=== PATIENT | male | born 1990 | race Caucasian/White ===

== ENCOUNTER 2017-11-02 21:17 | Observation (INO) | payer OTHER ==
[2017-11-02 22:15] LABS: #Basophils 0.1 thou/uL (0.0-0.2); #Eosinphils 0.3 thou/uL (0.0-0.7); #Lymphocytes 3.1 thou/uL (1.20-3.40); #Monocytes 0.7 thou/uL (0.11-0.59); #Neutrophils 3.7 thou/uL (1.40-6.50); %Basophils 1.1 % (0.0-1.0); %Eosinophils 3.8 % (0.0-10.0); %Lymphocytes 39.3 % (21.0-51.0); %Monocytes 8.6 % (0.0-10.0); %Neutrophils 47.1 % (42.0-75.0); Hemoglobin 14.7 g/dL (14.0-18.0); Mean Corpuscular HGB CONC 33.5 g/dL (32.0-36.0); Mean Corpuscular Hemoglobin 28.2 pg (27.0-31.0); Mean Corpuscular Volume 84.1 fl (80.0-94.0); Mean Platelet Volume 8.4 fL (7.4-10.4); Platelet Count 258 thou/uL (130-400); RBC Distribution Width 11.5 % (11.5-14.5); Red Blood Cell (RBC) Count 5.21 mill/uL (4.70-6.10); White Blood Cell (WBC) Count 7.9 thou/uL (4.8-10.8)
[2017-11-02 22:26] LABS: Acetaminophen Less than 6.0 mcg/mL (10.0-30.0); Alcohol Less than 10 mg/dL (Less than 10); Salicylate Less than 8.0 mg/dL (15.0-30.0)
[2017-11-02 22:29] LABS: ALT (SGPT) 31 U/L (8-55); AST (SGOT) 23 U/L (5-34); Albumin 4.5 g/dL (3.5-5.0); Alkaline Phosphatase 57 U/L (40-150); Anion Gap 16 mmol/L (10-20); BUN (Urea Nitrogen) 15 mg/dL (8.9-20.6); Bilirubin, Total 0.6 mg/dL (0.2-1.2); CK (CPK) 82 U/L (30-200); CKMB 0.9 ng/mL (0-6.6); Calc. Creatinine Clearance 0 mL/min (70-130); Carbon Dioxide 23 mmol/L (22-29); Chloride 102 mmol/L (98-107); Estimated GFR-MDRD Greater than 90; Glucose 107 mg/dL (70-105); Potassium 4.1 mmol/L (3.5-5.1); Protein, Total 8.5 g/dL (6.0-8.3); Sodium 137 mmol/L (136-145); Troponin I Less than 0.010 ng/mL (< 0.028)
--- NOTE | 2017-11-02 22:42 | CT ---
NONCONTRAST CT HEAD 11/02/17 HISTORY: Two separate syncopal episodes today. Patient may have hit head on counter. COMPARISON: None available. FINDINGS: There is no evidence of a hemorrhage, acute infarction, mass effect, or midline shift. The ventricula r system is normal in size, shape, and position. Calvarial structures are intact without evidence of a fracture. There is small area of scalp soft tissue swelling in the posterior right parietal region. There is mucosal thickening in the left sphenoid sinus with minimal mucosal thickening in a few right sided ethmoidal air cells. Mastoid air cells are clear. IMPRESSION: 1. No acute intracranial abnormalities demonstrated. 2. Small right parietal scalp hematoma. 3. Minimal sinus disease involving the left sphenoid sinus. POS: H
--- NOTE | 2017-11-02 23:10 | RAD ---
PA AND LATERAL CHEST X-RAY 11/02/17 HISTORY: Syncope. COMPARISON: None available. FINDINGS: The cardiac silhouette and pulmonary vasculature are within normal limits. There is focal eventration of the anterior right hemidiaphragm. Lungs are clear. Osseous structures are intact. IMPRESSION: No acute cardiopulmonary process. POS: H
[2017-11-03 00:46] VITALS: BMI 41.8
[2017-11-03] MEDS ORDERED: Ondansetron ODT 4 MG TAB PO PRN (01:08)
[2017-11-03] MEDS ORDERED: Acetaminophen 325 MG TAB PO PRN (01:08)
[2017-11-03] MEDS ORDERED: Nicotine 14 MG PATCH TD PRN (01:08)
--- NOTE | 2017-11-03 01:33 | PDOC.FPRHP ---
- History of Present Illness Chief Complaint: syncope History of Present Illness: Patient came into the Ed for evaluation after 2 episodes of syncope today. The first was while sitting in his bed playing video games, says he passed out and it must have been for 30 min based on timer on his video game. 2nd episode was when he was washing dishes, he fell and hit his head on the counter, does not think he passed out at this time because he remembers hitting his head. He had no aura. He states he feels dizzy (light-headed) often. He states he has "migraine" headache all the time described as sharp pain that can occur anywhere on his head and is relieved by vaping. Denies fevers, chills, sweats. Has had nausea, no vomiting. Was started on HCTZ 12.5mg 3 days ago along with increase in his lisinopril dose to 10mg. Was also started on clonazepam by Dr. Schwartz for his headaches this week. ED Course: 1L NS EKG normal negative head CT - Allergies/Adverse Reactions Allergies Allergy/AdvReac Type Severity Reaction Status Date / Time No Known Allergies Allergy Verified 11/03/17 00:40 - Home Medications Medication Instructions Recorded Confirmed Type Hydrochlorothiazide 12.5 mg PO DAILY 11/03/17 11/03/17 History Lisinopril [Lisinopril] 10 mg PO DAILY 11/03/17 11/03/17 History clonazePAM [clonazePAM] 0.5 mg PO DAILY 11/03/17 11/03/17 History - History PMHx: Headaches, HTN, anxiety PSHx: none FHx: adopted Social: vaping, occassional alcohol, no drugs - Review of Systems General: reports: fatigue. denies: fever/chills, weight/appetite/sleep changes , night sweats Eyes: denies: vision changes ENT: denies: nasal congestion, rhinorrhea Respiratory: denies: cough, congestion, shortness of breath Cardiovascular: denies: chest pain, palpitation, edema Gastrointestinal: denies: nausea, vomiting, diarrhea, constipation, abdominal pain, GI bleeding Genitourinary: denies: dysuria, polyuria Skin: reports: rashes (left forearm). denies: itching Musculoskeletal: denies: pain, arthritis/arthralgias Neurological: reports: syncope. denies: numbness, seizure, weakness Psychological: reports: anxiety. denies: depression - Vital signs BP: 142/102 HR: 88 RR: 16 Tmax: 98.8 Pox: 97% on RA Wt: 139.7 - Physical Exam Constitutional: NAD, awake, alert and oriented HEENT: normocephalic and atraumatic, PERRLA, EOMI, TM's clear and intact, MMM Neck: supple, FROM Chest: no-tender to palpation Heart: RRR, normal S1/S2, no murmurs/rubs/gallops, no edema Lungs: CTAB, no respiratory distress, good air movement Abdomen: soft, non-tender, bowel sounds present, no masses/distention Musculoskeletal: normal structure, ROM grossly normal Neurological: no focal deficit, CN II-XII intact, normal sensation Skin: no rash/lesions, capillary refill <2 seconds Heme/Lymphatic: no unusual bruising or bleeding FMR H&P: Results - Labs Result Diagrams: 11/02/17 22:03 11/02/17 22:03 Lab results: WBC 7.9 thou/uL (4.8-10.8) 11/02/17 22:03 Hgb 14.7 g/dL (14.0-18.0) 11/02/17 22:03 Hct 43.8 % (42.0-52.0) 11/02/17 22:03 MCV 84.1 fl (80.0-94.0) 11/02/17 22:03 Plt Count 258 thou/uL (130-400) 11/02/17 22:03 Neutrophils % 47.1 % (42.0-75.0) 11/02/17 22:03 Sodium 137 mmol/L (136-145) 11/02/17 22:03 Potassium 4.1 mmol/L (3.5-5.1) 11/02/17 22:03 Chloride 102 mmol/L (98-107) 11/02/17 22:03 Carbon Dioxide 23 mmol/L (22-29) 11/02/17 22:03 BUN 15 mg/dL (8.9-20.6) 11/02/17 22:03 Creatinine 0.76 mg/dL (0.7-1.3) 11/02/17 22:03 Glucose 107 mg/dL (70-105) H 11/02/17 22:03 Lactic Acid 1.1 mmol/L (0.5-2.2) 11/02/17 22:03 Calcium 10.0 mg/dL (7.8-10.44) 11/02/17 22:03 Total Bilirubin 0.6 mg/dL (0.2-1.2) 11/02/17 22:03 AST 23 U/L (5-34) 11/02/17 22:03 ALT 31 U/L (8-55) 11/02/17 22:03 Alkaline Phosphatase 57 U/L (40-150) 11/02/17 22:03 Creatine Kinase 82 U/L (30-200) 11/02/17 22:03 CK-MB (CK-2) 0.9 ng/mL (0-6.6) 11/02/17 22:03 Serum Total Protein 8.5 g/dL (6.0-8.3) H 11/02/17 22:03 Albumin 4.5 g/dL (3.5-5.0) 11/02/17 22:03 FMR H&P: A/P - Problem List (1) Syncope Current Visit: Yes Status: Acute Code(s): R55 - SYNCOPE AND COLLAPSE (2) Hypertension Current Visit: Yes Status: Acute Code(s): I10 - ESSENTIAL (PRIMARY) HYPERTENSION (3) Nicotine vapor product user Current Visit: Yes Status: Acute Code(s): Z78.9 - OTHER SPECIFIED HEALTH STATUS (4) Anxiety Current Visit: Yes Status: Acute Code(s): F41.9 - ANXIETY DISORDER, UNSPECIFIED - Plan # Syncope - negative CT head - sees Dr. Schwartz in clinic, new neuro source seems unlikely - just started HCTZ and had increased dose of lisinopril, suggests orthostatic - will watch tele overnight - stop HCTZ on d/c - outpatient echo # HTN - lisinopril 10 # Code - full # PPx -none # dispo - anticipate AM d/c FMR H&P: Upper Level - Pertinent history 27M present for 2 episode of syncope. He state he passed out once while in bed and a second time while he was in middle of washing dish. State he has migraine headache. Denies fever, chills, sweat. He recently started on HCTZ 3 days prior , had an increase in lisnopril from 5 to 10 mg, and started using clonazepam for headache. In ER, he receeeived 1 L NS, EKG was done which was normal, and a negative head CT. ROS: Endorse fatigue. HEENT: Denies vision change, nasal congestion, cough, SOB CV: Deneis chest pain, palpitation Resp: Denies SOB, labored breathing GI: Denies nausea, vomiting, endorses decrease oral intake Msk: Denies pain, Neuro: Report syncope. Denies numbness, weakness Psych: Endorse anxiety but deneis depression. - Pertinent findings Vitals: 142/102, HR 88, Tmax 98.9, O2 97% on RA, Wt 139.7 Gen: Alert, oriented HEENT: Normocephalac, PERRL, MMM Neck: Suppple Chest: Not tender to palpation CV : RR with no m/g/ r Lung CTAB Abd: Soft, non tender - Plan Date/Time: 11/03/17 0128 I, [Tyree Ly], have evaluated this patient and agree with findings/plan as outlined by event marketing intern resident. Pertinent changes/additions are listed here. 1. Syncope - Less likely neuro cause as head ct negative, seen by Dr. Schwartz recently - CV: Likely new dose of lisinopril and new HCTZ. Will hold HCTZ, orthostatic vitals. Tele monitoring for dysrhymia. Consider echo workup here or as outpatient. Electrolyte was normal. 2. HTN - Hold HCTZ, continue with lisinopril only at this time 3.PPX - None as likely discharge today.
[2017-11-03 08:22] VITALS: BP 142/86; TEMP 97.6
[2017-11-03] MEDS ORDERED: clonazePAM 0.5 MG TAB PO SCH (09:00)
[2017-11-03] MEDS ORDERED: Aspirin 81 mg Enteric Coated Tablet PO SCH (09:00)
[2017-11-03] MEDS ORDERED: Lisinopril 10 MG TAB PO SCH (09:00)
--- NOTE | 2017-11-05 01:40 | DIS-2 ---
DATE OF ADMISSION: 11/02/2017 DATE OF DISCHARGE: 11/03/2017 ADMITTING RESIDENT: Isaak Acevedo MD DISCHARGE RESIDENT: Zakia Cardoso MD DISCHARGE ATTENDING: Rohit Hernandez MD CONSULTS: None. PROCEDURES: None. IMAGIN. Chest CT showed no acute intracranial abnormalities, small right parietal scalp hematoma, minimal sinus disease involving the left sphenoid sinus. 2. Chest x-ray showed no acute cardiopulmonary process. PRIMARY DIAGNOSES: 1. Syncope, likely vasovagal. 2. Migraine headaches. SECONDARY DIAGNOSES: 1. Hypertension. 2. Anxiety. DISCHARGE MEDICATION: Lisinopril 20 mg p.o. daily. DISCONTINUED MEDICATIONS: 1. Hydrochlorothiazide 25 mg p.o. daily. 2. Clonazepam 0.5 mg p.o. daily HISTORY OF PRESENT ILLNESS AND HOSPITAL COURSE: This is a 27-year-old male with past medical history of headaches who presents to the ED after two episodes of "syncope" earlier the day of admission. T he patient had no signs or symptoms of seizure activity. The patient was found to have normal lab wo rk. The patient's head CT was normal aside from a small scalp hematoma from when the patient bumped his head. The patient reports that one of the times, it was while sitting down, the other was while standing up. However, he does get more dizzy whenever he stands up quickly. The patient had recentl y 3 days prior to admission had hydrochlorothiazide added to his blood pressure regimen. The patient also had clonazepam added to his medication regimen a week ago. The patient did not like the way th e clonazepam made him feel and since having both of those medications added, the patient has felt mor e dizzy and lightheaded. The patient had an MRI planned with Dr. Schwartz within the next week to 2 week s to evaluate his headaches. The patient was monitored on tele throughout his hospitalization and re mained in normal sinus rhythm with heart rate predominantly in the 80s-90s. It is likely that the pa tient has a component of vasovagal secondary to medication changes, but also appears that the patient has a large anxiety component and it is recommended that the patient consider evaluation for either therapy versus a medication for his anxiety. The patient had no abnormal physical exam findings poin ting to any sort of neurologic pathology. No carotid bruits. The patient's hospital course was disc ussed with his primary care physician who will continue to follow up with him outpatient regarding th eleonora findings and continue to adjust blood pressure medications to try and avoid these complications w ell controlling blood pressure. DISPOSITION: Stable. DISCHARGE INSTRUCTIONS: 1. Location: Home. 2. Diet: Heart healthy. 3. Activity: As tolerated. 4. Followup: Follow up with Dr. Justine Hanley within [address] Gen Schwartz within 2-3 months.
--- NOTE | 2017-11-30 12:08 | EKG ---
Test Reason : Blood Pressure : / mmHG Vent. Rate : 089 BPM Atrial Rate : 089 BPM P-R Int : 130 ms QRS Dur : 092 ms QT Int : 344 ms P-R-T Axes : 031 062 021 degrees QTc Int : 418 ms Normal sinus rhythm with sinus arrhythmia Normal ECG Confirmed by DEQUAN WHITEHEAD ([id number]), development editor GRETA BRAUN ([id number]) on 11/30/2017 12:06:59 PM Referred By: Confirmed By:DEQUAN WHITEHEAD
== END 2017-11-03 10:26 | disposition home or self-care (01) ==
LOC: SCSER 21:17 → 2SE 23:27
PROVIDERS: ADMIT Family Medicine; ATTEND Family Medicine
DX: R55 Syncope and collapse (principal); G43.909 Migraine, unspecified, not intractable, without status migrainosus; I10 Essential (primary) hypertension; F41.9 Anxiety disorder, unspecified; F17.290 Nicotine dependence, other tobacco product, uncomplicated; Z79.899 Other long term (current) drug therapy
CPT/HCPCS: 70450; 71046; 80053; 80307; 82553; 83605; 84484; 85025; 85379; 93005; 96360; G0378

== ENCOUNTER 2017-11-05 10:24 | Outpatient (CLI) | payer OTHER ==
--- NOTE | 2017-11-05 13:58 | MRI ---
BRAIN MRI WITH AND WITHOUT CONTRAST: HISTORY: Migraine headaches. Symptoms x 3 years. COMPARISON: None. TECHNIQUE: Brain MRI is performed without intravenous Gadolinium administration. Multisequential, multiplanar i maging is performed. FINDINGS: No hemorrhage on the axial gradient echo sequence. No parenchymal mass, mass effect, or midline shif t. Brain volume, age appropriate. Cortical corona-white matter differentiation is preserved. Ventric les and sulci are patent and symmetric. Calvarium has a normal T1 marrow signal intensity. Midline brain parenchymal structures are unremark able. No significant T2 and FLAIR white matter hyperintensities. Central arterial flow voids are maintained. Absent restricted diffusion. Adequate aeration of the sinuses and mastoid air cells. The left and right cerebellar tonsils appear to be at the level of foramen magnum. Correlate for pos sible cerebellar tonsillar ectopia versus Chiari-I malformation. Dedicated cervical spine MRI is rec ommended. Sagittal FLAIR sequence should be included. Minimal mucous retention cysts in the left sphenoid sinus. Adequate mastoid air cell aeration. Central arterial flow voids are maintained. No restricted diffusion. No pathologic enhancement of the brain parenchyma. IMPRESSION: 1. No pathologic enhancement of the brain parenchyma. 2. The presence of the cerebellar tonsils in the level of the foramen magnum, impolitely evaluated. Cervical spine MRI is recommended to assess for cerebellar tonsillar ectopia versus Chiari I malform ation. No associated obstructing hydrocephalus. 3. No significant FLAIR or T2 white matter hyperintensities. POS: [facility]
== END 2017-11-05 10:25 | disposition home or self-care (01) ==
LOC: TBSIIMAG 10:24
PROVIDERS: ATTEND Student in an Organized Health Care Education/Training Program
DX: G43.909 Migraine, unspecified, not intractable, without status migrainosus (principal); R47.89 Other speech disturbances; G93.89 Other specified disorders of brain
CPT/HCPCS: 70553